=== PATIENT | female | born 1970 | race Caucasian/White ===

== ENCOUNTER 2016-12-14 09:12 | Emergency (ER) | payer MEDICAID ==
[2016-12-14 10:11] LABS: BASOPHIL % 0.1 % (0-2); PLATELET COUNT 327 x10^3mcL (130-400)
[2016-12-14 10:21] LABS: CALCIUM 8.6 mg/dL (8.5-10.1); CARBON DIOXIDE 29.2 mmol/L (21-32); CHLORIDE SERUM 101 mmol/L (98-107); CREATININE SERUM 0.7 mg/dL (0.6-1.0); GFR1 > 60 mL/min; GLUCOSE SERUM 242 mg/dL (74-106); POTASSIUM SERUM 4.2 mmol/L (3.5-5.1); SODIUM SERUM 136 mmol/L (136-145)
[2016-12-14 10:25] LABS: ALBUMIN 3.4 g/dL (3.4-5.0); ALKALINE PHOSPHATASE 80 U/L (46-116); ALT/SGPT 56 U/L (14-59); AMYLASE 55 U/L (25-115); AST/SGOT 23 U/L (15-37); BILIRUBIN TOTAL 0.2 mg/dL (0.20-1.00); LIPASE 129 IU/L (73-393); TOTAL PROTEIN, SERUM 7.4 g/dL (6.4-8.2)
[2016-12-14 11:12] VITALS: BP 143/74
== END 2016-12-14 11:12 | disposition home or self-care (01) ==
LOC: ED 09:12
PROVIDERS: Emergency Medicine
DX: M54.9 Dorsalgia, unspecified (principal); R30.0 Dysuria; E11.9 Type 2 diabetes mellitus without complications; Z79.4 Long term (current) use of insulin; Z90.49 Acquired absence of other specified parts of digestive tract; Z79.84 Long term (current) use of oral hypoglycemic drugs
CPT/HCPCS: 83880; J1885

== ENCOUNTER 2017-12-31 23:58 | Emergency (ER) | payer MEDICAID ==
[~2017-12-31] VITALS: Ht 160 cm; Wt 82.1 kg
[2018-01-01 00:37] VITALS: Ht 160 cm; Wt 82.1 kg
[2018-01-01 02:59] LABS: UA SPECIFIC GRAVITY 1.025 (1.005-1.035); microscopic required? YES; urine erythrocyte 3+ (NEGATIVE)
[2018-01-01 05:23] VITALS: BP 112/72
== END 2018-01-01 05:23 | disposition home or self-care (01) ==
LOC: ED 23:58
PROVIDERS: Emergency Medicine
DX: M25.551 Pain in right hip (principal); R25.2 Cramp and spasm; M25.552 Pain in left hip; M54.5 Low back pain; E11.9 Type 2 diabetes mellitus without complications; M79.652 Pain in left thigh; M79.651 Pain in right thigh
CPT/HCPCS: J1885; J2270; Q0162